=== PATIENT | female | born 1970 | race Hispanic/Latino ===

== ENCOUNTER 2018-11-20 06:03 | Day surgery (SDC) | payer BC ==
[2018-11-14 09:30] VITALS: BP 112/70
[2018-11-20] VITALS (12 sets, daily range): BP systolic 111–135; BP diastolic 74–83
[~2018-11-20] VITALS: Ht 157.5 cm; Wt 51.9 kg
[~2018-11-20 06:03] MED LIST: LEVO25TA54 PO
[2018-11-20] MEDS ORDERED: LACTATED RINGERS 1000ML 1,000 ML IV ONE (06:16)
[2018-11-20] MEDS ORDERED: PROPOFOL 10 MG/ML 20ML VIAL IV ONE (07:01)
[2018-11-20] MEDS ORDERED: DEXAMETHASONE SOD PHOSPHATE 10MG/ML 1ML VIAL ONE (07:01)
[2018-11-20] MEDS ORDERED: LIDOCAINE PF 2% 5ML ABBOJECT ONE (07:01)
[2018-11-20] MEDS ORDERED: MIDAZOLAM HCL 1 MG/ML 2ML VIAL ONE (07:01)
[2018-11-20] MEDS ORDERED: FENTANYL CITRATE PF 50 MCG/1 ML 2ML VIAL ONE (07:02)
[2018-11-20] MEDS ORDERED: ONDANSETRON HCL 4 MG/2 ML VIAL ONE (07:02)
[2018-11-20] MEDS ORDERED: ROCURONIUM 10MG/1ML SYR 10 MG/ML ML ONE (07:04)
[2018-11-20] MEDS ORDERED: LIDOCAINE HCL 1% 20 ML VIAL ONE (07:12)
[2018-11-20] MEDS ORDERED: SODIUM BICARB [NEONATAL] 4.2% 10ML SYG ONE (07:12)
[2018-11-20] MEDS ORDERED: IOPAMIDOL 10 ML VIAL ONE (07:36)
--- NOTE | 2018-11-20 08:40 | NUR ---
POST RECEIVED PT FROM PACU, S/P RIGHT SACRAL ILIAC JOINT INJECTIONS, BANDAID TO RIGHT UPPER BUTTOCK DRY AND INTACT, VS STABLE ON ARRIVAL.
--- NOTE | 2018-11-20 09:05 | NUR ---
DC DC INSTRUCTIONS GIVEN TO PT BY CINDY JIMENES RN. INSTRUCTED TO F/U WITH DR. PANDEY. PIV REMOVED. SITE ASYMPTOMATIC
--- NOTE | 2018-11-20 09:07 | NUR ---
DC PT DC HOME VIA WC, NO DISTRESS NOTED. DENIES ANY PAIN OR DISCOMFORTS. ACCOMPANIED BY SPOUSE
== END 2018-11-20 09:07 | disposition home or self-care (01) ==
LOC: DAH 06:03
PROVIDERS: ATTEND Neurological Surgery
DX: M53.3 Sacrococcygeal disorders, not elsewhere classified (principal); I10 Essential (primary) hypertension; E11.9 Type 2 diabetes mellitus without complications; E78.5 Hyperlipidemia, unspecified; Z87.891 Personal history of nicotine dependence; Z79.82 Long term (current) use of aspirin; Z79.899 Other long term (current) drug therapy; Z88.8 Allergy status to other drugs, medicaments and biological substances; Z88.5 Allergy status to narcotic agent
CPT/HCPCS: 27096; A4215; J1030; J1100; J2001; J2250; J2405; J2704; J3010; J3490; J7030; J7120; Q9966; 77003

== ENCOUNTER → 2020-10-13 | Outpatient (CLI) | payer BC | END | disposition home or self-care (01) | LOC: RAH 15:14 | PROVIDERS: ATTEND Neurological Surgery | DX: M47.26 Other spondylosis with radiculopathy, lumbar region (principal) | CPT/HCPCS: 72148 ==

== ENCOUNTER → 2024-08-26 | Outpatient (CLI) | payer BC ==
--- NOTE | 2024-08-26 16:05 | HMCIMG ---
CT LUMBAR SPINE WITHOUT CONTRAST INDICATION: Segmental and somatic dysfunction of sacral region, worsening lower back pain radiating down the right groin and leg TECHNIQUE: Noncontrast helical CT of the lumbar spine obtained at 2 mm slice thickness with reconstructions in the coronal and sagittal planes. 3-D volume renderings included. CT was performed with one or more of the following dose reduction techniques: Automated exposure control, adjustment of the mA and/or kV according to patient size, or use of iterative reconstruction technique. COMPARISON: 10/13/2020 MR lumbar spine FINDINGS: Normal lordosis is maintained. Vertebral bodies are normal in height, without evidence for fracture or compression deformity. No evidence for subluxation. Additional specific findings are as follows: T12-L1: No significant disc protrusion/extrusion or moderate or high-grade neuroforaminal narrowing or central canal stenosis. No significant facet disease. L1-L2: No significant disc protrusion/extrusion or moderate or high-grade neuroforaminal narrowing or central canal stenosis. No significant facet disease. L2-L3: No significant disc protrusion/extrusion or moderate or high-grade neuroforaminal narrowing or central canal stenosis. No significant facet disease. L3-L4: No significant disc protrusion/extrusion or moderate or high-grade neuroforaminal narrowing or central canal stenosis. No significant facet disease. L4-L5: No significant disc protrusion/extrusion or moderate or high-grade neuroforaminal narrowing or central canal stenosis. No significant facet disease. L5-S1:No significant disc protrusion/extrusion or moderate or high-grade neuroforaminal narrowing or central canal stenosis. No significant facet disease. Multilevel nominal anterior endplate osteophytic spurring. The sacroiliac joints appear normal. The paravertebral soft tissues appear normal. IMPRESSION: No significant disc herniation, neuroforaminal narrowing, or central canal stenosis..
== END | disposition home or self-care (01) ==
LOC: RAH 15:11
PROVIDERS: ATTEND Physical Medicine & Rehabilitation
DX: M25.78 Osteophyte, vertebrae (principal); M46.06 Spinal enthesopathy, lumbar region; M99.04 Segmental and somatic dysfunction of sacral region; M51.360 Other intervertebral disc degeneration, lumbar region with discogenic back pain only; M79.604 Pain in right leg; M77.8 Other enthesopathies, not elsewhere classified
CPT/HCPCS: 72131